=== PATIENT | male | born 1970 | race Caucasian/White ===

== ENCOUNTER 2021-09-27 14:06 | Emergency (ER) | payer OTHER, SELFPAY ==
[2021-09-27 14:28] VITALS: BP 130/77; PULSE 71; RESP 16; TEMP 36.7; O2SAT 99
--- NOTE | 2021-09-27 14:57 | ED.URI ---
HPI - URI/Sore Throat General Chief Complaint: Dizziness Stated Complaint: Cough,Light headed Time Seen by Provider: 09/27/21 14:57 Source: patient Mode of arrival: ambulatory Limitations: no limitations History of Present Illness HPI Narrative: Franki Tyson is a 51-year-old male with no PMH other than an inguinal hernia that comes to [facility] with 6 days of cough fever, chest pain from coughing, has been taking Mucinex and nighttime version of Mucinex with little result. He states that at times he has coughing fits and difficult to get his breath. He had diarrhea last week for 3 days Patient has not been vaccinated for Covid but has had a flu shot Related Data Allergies Allergy/AdvReac Type Severity Reaction Status Date / Time erythromycin base Allergy Unknown Verified 07/26/10 13:28 No Known Allergies Allergy Unverified 07/18/18 12:49 Review of Systems Review of Systems: CONSTITUTIONAL: Denies fever, chills, sweats. EYES: Denies visual changes, redness, discharge. ENT: Has rhinorrhea, has congestion, has sore throat, otalgia. CARDIOVASCULAR: Denies chest pain, palpitations, edema. RESPIRATORY: Denies dyspnea, wheezing, has cough GASTROINTESTINAL: Denies abdominal pain, nausea, vomiting, diarrhea. GENITOURINARY: Denies dysuria, hematuria, abnormal discharge SKIN: Denies rash or itching. NEUROLOGIC: Denies numbness, or focal weakness. PSYCHIATRIC: Denies anxiety or depression. PMFSH Past Medical History Medical History Inguinal hernia Family History Family History Father Family history of diabetes mellitus in first degree relative Sibling Depression Other Diabetes mellitus Social History Social History Smoking status: Never smoker Smoking end date: 11/06/03 Alcohol intake: current Comments At time of signature, I agree with nursing past medical, surgical, social and family history. There is no relevant family history pertinent to the presenting complaint. Exam Narrative: GENERAL: This is a well-nourished, well-developed patient, in moderate distress. HEAD: normocephalic, atraumatic. EYES: . Sclera clear/white. Vision is grossly intact. EARS: External ears normal, auditory canals erythema and without drainage, TMs normal without perforation. Hearing grossly intact. NOSE: External nose normal with nasal discharge, nares without redness, has rhinorrhea. THROAT: Mucous membranes moist, posterior pharynx erythema NECK: Neck supple, non-tender CARDIOVASCULAR: Regular rate and rhythm without murmurs, gallops, or rubs. RESPIRATORY: Clear to auscultation. Breath sounds equal bilaterally. No wheezes, rales, or rhonchi. He has a dry raspy cough that at times sounds like bronchospasm GASTROINTESTINAL: Abdomen soft, non-tender, has inguinal hernia SKIN: warm, intact with no suspicious lesions or rash, good texture and turgor. NEURO: awake, alert, and oriented to person, place and time. There were no obvious focal neurologic abnormalities. Steady gait EXTREMITIES: Normal range of motion. BACK: Nontender without deformity Course Course Emergency Course: Patient here for complaints of cough sore throat achiness just not feeling well he had diarrhea last week Test done and was positive Patient started on prednisone x5 days, Zithromax, Tessalon Perles, codeine cough syrup criteria for seeking further treatment such as O2 sats under 92% he should call his PCP and if it should be less than 90 should go to the ER when he picks up his take all meds he should get a pulse ox from the pharmacy Vital Signs Vital signs: Vital Signs Temperature 98.1 F 09/27/21 14:28 Pulse Rate 71 09/27/21 14:28 Respiratory Rate 16 09/27/21 14:28 Blood Pressure 130/77 09/27/21 14:28 Pulse Oximetry 99 09/27/21 14:28 Temperature 98.1
== END 2021-09-27 15:18 | disposition home or self-care (01) ==
PROVIDERS: Emergency Provider Nurse Practitioner; PCP Emergency Medicine
DX: U07.1 COVID-19 (principal)
CPT/HCPCS: 87426; 99213; C9803; G0463

== ENCOUNTER 2022-09-13 14:30 | Emergency (ER) | payer OTHER, BC, SELFPAY ==
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
[2022-09-13 14:42] VITALS: BP 120/73; PULSE 78; RESP 18; TEMP 36.7; O2SAT 97
--- NOTE | 2022-09-13 14:48 | PC.NURSE ---
Patient refused to wear c-collar
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
[2022-09-13 18:34] VITALS: BP 110/88; PULSE 75; RESP 16; O2SAT 100
== END 2022-09-13 18:36 | disposition home or self-care (01) ==
LOC: ANHED 18:21
PROVIDERS: Emergency Provider Emergency Medicine; PCP Emergency Medicine
DX: S16.1XXA Strain of muscle, fascia and tendon at neck level, initial encounter (principal); J32.0 Chronic maxillary sinusitis; E66.3 Overweight; Z68.25 Body mass index [BMI] 25.0-25.9, adult; Z87.891 Personal history of nicotine dependence; V47.5XXA Car driver injured in collision with fixed or stationary object in traffic accident, initial encounter
CPT/HCPCS: 72125; 73030; 99284; L0140